=== PATIENT | male | born 1980 | race Caucasian/White ===

== ENCOUNTER 2017-10-21 10:37 | Emergency (ER) | payer OTHER ==
[~2017-10-21] VITALS: Ht 172.7 cm; Wt 68.0 kg
[~2017-10-21 10:37] MED LIST: Z.0.NO CURRENT MEDS
[2017-10-21 10:43] VITALS: BP 124/72; PULSE 69; RESP 18; TEMP 97.6; O2SAT 97
[2017-10-21 11:02] VITALS: BP 151/77; PULSE 72; RESP 18; O2SAT 97
[2017-10-21] MEDS ORDERED: LEXA20TA PO (11:05)
--- NOTE | 2017-10-21 11:39 | PD ---
HPI Chief Complaint: Back/ Neck Pain or Injury Time Seen by Provider: 11:22 Travel History International Travel<30 days: No Contact w/Intl Traveler<30days: No Traveled to known affect area: No History of Present Illness HPI -year-old male presents to the emergency department with complaint of right mid back pain that he woke up with 2 days ago. Denies fever, vomiting, abdominal pain. Denies dysuria, hematuria. Denies history of kidney stones. Denies injury. Denies IV drug use, cancer. Denies paresthesias, loss of sensation, decreased range of motion, decreased strength to all extremity's. Denies encopresis, incontinence, saddle anesthesias. Is ambulatory without change in gait. Pain is worse with standing up. Pain is constant and no known relieving factors. Has tried taking Aleve for symptom management. Rates pain 02/06. No primary care provider. No known allergies. History of anxiety and takes Lexapro. Has no other medical complaints. No other modifying factors or associated signs and symptoms. [facility] Past Medical History Musculoskeletal: Yes (herniated disc in his cervical spine) Social History Alcohol Use: Yes (6 PACK EVERY OTHER DAY) Tobacco Use: Yes (1 PACK A DAY) Allergies-Medications (Allergen,Severity, Reaction): Coded Allergies: No Known Allergies (Verified Allergy, Mild, 06/08/06) Reported Meds & Prescriptions Reported Meds & Active Scripts Active Ibuprofen 800 Mg Tab 800 Mg PO Q6HR PRN Robaxin (Methocarbamol) 500 Mg Tab 500 Mg PO QID PRN Reported Lexapro (Escitalopram Oxalate) 20 Mg Tab 20 Mg PO DAILY Review of Systems Except as stated in HPI: all other systems reviewed are Neg Physical Exam Narrative GENERAL: Well-nourished, well-developed male patient, in no acute distress; afebrile, nontoxic-appearing SKIN: Warm and dry. No rash noted to back. HEAD: Atraumatic. Normocephalic. EYES: Pupils equal and round. No scleral icterus. No injection or drainage. ENT: Mucosa pink and moist. Airway patent. NECK: Trachea midline. CARDIOVASCULAR: Regular rate. RESPIRATORY: No accessory muscle use. GASTROINTESTINAL: Abdomen soft, non-tender, nondistended. Positive bowel sounds. No hepato-splenomegaly, or palpable masses. No guarding. MUSCULOSKELETAL: Bilateral lower extremities supple and non-tense with 2+ pedal pulses and sensory intact; with full range of motion and 5/5 strength. 2 + DTRs bilaterally. Active dorsiflexion and extension of bilateral feet. Bilateral straight leg raise is positive for mid back pain. Ambulatory in room with normal gait. Sitting up in bed at 90. No obvious deformities. No clubbing. No cyanosis. No edema. BACK: Pain on exam is out of proportion for findings. Midline point tenderness on palpation of the lumbar spine. Tenderness on palpation of right musculature of the thoracic spine area. No obvious deformities. NEUROLOGICAL: Awake and alert. Oriented 3. No obvious cranial nerve deficits. Motor grossly within normal limits. Normal speech. Moves all extremities. 5/5 strength to all extremities. Sensory intact. PSYCHIATRIC: Appropriate mood and affect; insight and judgment normal. Data Data Last Documented VS Vital Signs Date Time Temp Pulse Resp B/P (MAP) Pulse Ox O2 Delivery O2 Flow Rate FiO2 10/21/17 11:02 66 18 10/21/17 11:02 151/77 (101) 97 Room Air 10/21/17 10:43 97.6 Orders Orders Ketorolac Inj (Toradol Inj) (10/21/17 11:45) Orphenadrine Inj (Norflex Inj) (10/21/17 11:45) Spine, Thoracic-Ap/Lat/Sw(3vw) (10/21/17 11:40) Ed Discharge Order (10/21/17 13:03) [facility] Medical Decision Making Medical Screen Exam Complete: Yes Emergency Medical Condition: Yes Medical Record Reviewed: Yes Differential Diagnosis Muscle spasm, back strain, back pain, shingles Narrative Course 36-year-old male with right thoracic back pain that he woke up with 2 days ago. Denies injury. Denies encopresis, incontinence, saddle anesthesias. Denies IV drug use or cancer. Neuro exam is unremarkable. Patient's pain is out of proportion compared to physical findings. Patient has pain on very light palpation to the skin of the right thoracic back. There is no rash noted. Toradol and Robaxin prescribed for home. Patient does have midline tenderness on palpation of the thoracic spine. I will order an x-ray to rule out any acute findings, although unlikely. Thoracic spine x-ray ordered. 1255: Thoracic spine x-ray concluded: Thoracic Spine X-Ray 10/21/17 1140 Signed Impressions: Service Date/Time: Saturday, October 21, 2017 12:00 - CONCLUSION: 1. No acute fracture. 2. Levocurvature. Benny Meneses MD Discussed x-ray findings with the patient. Ibuprofen and Robaxin prescribed for home. Instructed patient to follow up with primary care provider. Patient verbalizes understanding and agreement with treatment plan. Patient is medically cleared and stable for discharge. Discussed reasons to return to the emergency department. Patient agrees with treatment plan. The patients vital signs are stable and the patient is stable for outpatient follow-up and treatment. Patient discharged home, stable and in no acute distress. Diagnosis Primary Impression: Thoracic back pain Qualified Codes: M54.6 - Pain in thoracic spine Referrals: [facility] Primary Care Physician Patient Instructions: Back Pain (ED), General Instructions Additional Instructions: Tylenol or ibuprofen as directed and as needed for pain Robaxin as prescribed and as needed for muscle spasms Heating pad and/or ice to affected area to reduce pain Avoid aggravating activities; increase activity as tolerated Follow-up with primary care provider Return to emergency department immediately with worsening of symptoms Med/Other Pt SpecificInfo: Prescription(s) given Scripts Ibuprofen (Ibuprofen) 800 Mg Tab 800 MG PO Q6HR Y for PAIN, #30 TAB 0 Refills Prov: Lissette Martin 10/21/17 Methocarbamol (Robaxin) 500 Mg Tab 500 MG PO QID Y for MUSCLE SPASM, #30 TAB 0 Refills Prov: Lissette Martin 10/21/17 Disposition: 01 DISCHARGE HOME Condition: Stable Lissette Martin Oct 21, 2017 11:39
[2017-10-21] MEDS ORDERED: ORPHENADRINE INJ 60 MG/2 ML AMP IM ONE (11:45)
[2017-10-21] MEDS ORDERED: KETOROLAC TROMETHAMINE 60 MG/2 ML (IM) VIAL IM ONE (11:45)
--- NOTE | 2017-10-21 12:13 | RADRPT ---
EXAM DATE/TIME: 10/21/2017 12:00 [facility] COMPARISON: No previous studies available for comparison. INDICATIONS : Back pain, no injury. MEDICAL HISTORY : None. SURGICAL HISTORY : None. ENCOUNTER: Initial ACUITY: 1 day PAIN SCORE: 10/10 LOCATION: Bilateral middle back FINDINGS: There is normal alignment of the thoracic vertebral bodies. Vertebral body height is maintained. No evidence of fracture or subluxation. Levocurvature. Pedicles are intact at all levels. The paraver tebral reflections are not thickened. CONCLUSION: 1. No acute fracture. 2. Levocurvature. Benny Meneses MD on October 21, 2017 at 12:10 Board Certified Radiologist. This report was verified electronically.
[2017-10-21] MEDS ORDERED: ROBA500T PO (12:58)
[2017-10-21] MEDS ORDERED: IBUP1TAB7 PO (12:58)
== END 2017-10-21 13:20 | disposition home or self-care (01) ==
LOC: NEPD 10:37
DX: M54.6 Pain in thoracic spine (principal); F41.9 Anxiety disorder, unspecified; F17.200 Nicotine dependence, unspecified, uncomplicated
CPT/HCPCS: 72072; 96372; 99283; J1885; J2360